=== PATIENT | male | born 1955 | race Caucasian/White ===

== ENCOUNTER 2024-08-26 13:38 | Inpatient (IN) | payer OTHER, MEDICAID, MEDICARE ==
[~2024-08-26] VITALS: Ht 162.6 cm; Wt 71.7 kg
[2024-08-26] MEDS: LORAZEPAM 2MG/ML UD SYRINGE IV NR (14:24)
[2024-08-26] MEDS: SODIUM CHLORIDE 0.9% 1,000 ML IV ONE (14:25)
[2024-08-26 14:34] LABS: BASOPHILS % 0.7 % (0.0-2.0); EOSINOPHILS % 0.7 % (0.0-5.0); HEMATOCRIT. 39.4 % (42.0-52.0); HEMOGLOBIN. 13.1 g/dL (14.0-18.0); LYMPHOCYTES % 14.4 % (20.0-50.0); MEAN PLATELET VOLUME 6.6 fl (7.4-10.4); MONOCYTES % 6.0 % (2.0-8.0); NEUTROPHILS % 78.2 % (40.0-76.0); PLATELET 505 x1000/uL (130-400); RED BLOOD CELL COUNT 4.18 mill/uL (4.7-6.1); RED CELL DISTRIBUTION WIDTH 13.8 % (11.6-14.6)
[2024-08-26 14:46] LABS: CREATININE 0.8 mg/dL (0.6-1.3); UREA NITROGEN BLOOD 12 mg/dL (9-23)
[2024-08-26 14:47] LABS: ETHANOL BLOOD < 10 mg/dL (<10)
[2024-08-26 19:30] VITALS: BP 145/86; PULSE 74; RESP 18; TEMP 36.8
[2024-08-26 20:00] VITALS: BP 145/86; PULSE 74; RESP 18; TEMP 36.7; O2SAT 98
[2024-08-26] MEDS: DEXT 5%/0.45% NACL 1000ML 1,000 ML IV SCH (21:32)
[2024-08-27] VITALS: BP 138/78; PULSE 64; RESP 16; TEMP 34.9; O2SAT 98
[2024-08-27 02:55] LABS: CLARITY URINE CLEAR (CLEAR); COLOR URINE YELLOW (YELLOW); GLUCOSE URINE NEGATIVE (NEGATIVE); KETONES URINE NEGATIVE (NEGATIVE); LEUKOCYTE ESTERASE URINE NEGATIVE (NEGATIVE); NITRITE URINE NEGATIVE (NEGATIVE); OCCULT BLOOD URINE NEGATIVE (NEGATIVE); PH URINE 8.0 (4.5-8.0); PROTEIN URINE NEGATIVE (NEGATIVE); SPECIFIC GRAVITY URINE 1.009 (1.005-1.030); UROBILINOGEN URINE 0.2 E.U./dL (0.2-1.0)
[2024-08-27 03:08] LABS: *AMPHETAMINES SCREEN URINE NEGATIVE (NEGATIVE); *BARBITURATES SCREEN URINE NEGATIVE (NEGATIVE); *BENZODIAZEPINES SCREEN URINE NEGATIVE (NEGATIVE); *COCAINE SCREEN URINE NEGATIVE (NEGATIVE); CANNABINOID URINE SCREEN NEGATIVE (NEGATIVE); ECSTASY MDMA SCREEN URINE NEGATIVE (NEGATIVE); METHADONE URINE SCREEN NEGATIVE (NEGATIVE); OPIATES URINE SCREEN NEGATIVE (NEGATIVE); PHENCYCLIDINE URINE SCREEN NEGATIVE (NEGATIVE)
[2024-08-27 04:00] VITALS: BP 133/67; PULSE 67; RESP 16; TEMP 35.7; O2SAT 95
[2024-08-27 08:00] VITALS: BP 143/91; PULSE 97; RESP 18; TEMP 36.4; O2SAT 92
[2024-08-27] MEDS ORDERED: LORAZEPAM 2MG/ML UD SYRINGE IV PRN (08:00)
[2024-08-27] MEDS ORDERED: CLONIDINE 0.1MG TABLET PO PRN (10:00)
[2024-08-27] MEDS ORDERED: DIPHENHYDRAMINE 50MG/ML VIAL IV PRN (10:00)
[2024-08-27] MEDS ORDERED: ACETAMINOPHEN 325MG TABLET PO PRN ×2 (10:00)
[2024-08-27] MEDS ORDERED: ONDANSETRON HCL 4MG/2ML INJ IV PRN (10:00)
[2024-08-27] MEDS ORDERED: MAGNESIUM/ALUMINUM HYDROXIDE/SIMETHICONE 30ML UDC PO PRN (10:00)
[2024-08-27 12:00] VITALS: BP 122/87; PULSE 84; RESP 18; TEMP 36.6; O2SAT 95
[2024-08-27] MEDS: ENOXAPARIN 40MG/0.4ML SYR SUBCUT SCH (12:02)
[2024-08-27 16:00] VITALS: BP 133/67; PULSE 67; RESP 16; TEMP 36.2; O2SAT 95
[2024-08-27] MEDS: SODIUM CHLORIDE 0.9% 3ML FLUSH IVF SCH (18:00)
[2024-08-27] MEDS: ROPINIROLE HCL 1MG TABLET PO SCH (18:38)
[2024-08-27 20:00] VITALS: BP 121/94; PULSE 107; RESP 18; TEMP 36.3; O2SAT 96
[2024-08-27] MEDS ORDERED: CARBIDOPA/LEVODOPA 25/100MG TABLET CR PO SCH (21:00)
[2024-08-27] MEDS: ATORVASTATIN CALCIUM 20MG TABLET PO SCH (21:50)
[2024-08-27] MEDS: PANTOPRAZOLE 40MG DR TABLET PO SCH (21:50)
[2024-08-27] MEDS: CARBIDOPA/LEVODOPA 25/100MG TABLET CR PO SCH (21:54)
[2024-08-28] VITALS: BP 157/75; PULSE 102; RESP 18; TEMP 36.3; O2SAT 96
[2024-08-28 04:00] VITALS: BP 137/94; PULSE 96; RESP 18; TEMP 36.4; O2SAT 95
[2024-08-28] MEDS: LEVOTHYROXINE SODIUM 50MCG TABLET PO SCH (05:47)
[2024-08-28 07:36] LABS: BASOPHILS % 0.5 % (0.0-2.0); EOSINOPHILS % 1.0 % (0.0-5.0); HEMATOCRIT. 40.5 % (42.0-52.0); HEMOGLOBIN. 13.7 g/dL (14.0-18.0); LYMPHOCYTES % 13.1 % (20.0-50.0); MEAN PLATELET VOLUME 6.7 fl (7.4-10.4); MONOCYTES % 8.1 % (2.0-8.0); NEUTROPHILS % 77.3 % (40.0-76.0); PLATELET 512 x1000/uL (130-400); RED BLOOD CELL COUNT 4.35 mill/uL (4.7-6.1); RED CELL DISTRIBUTION WIDTH 14.0 % (11.6-14.6)
[2024-08-28 07:57] LABS: CREATININE 0.8 mg/dL (0.6-1.3)
[2024-08-28 07:58] LABS: UREA NITROGEN BLOOD 12 mg/dL (9-23)
[2024-08-28 08:00] VITALS: BP 125/80; PULSE 89; RESP 16; TEMP 36.4; O2SAT 96
[2024-08-28 08:00] LABS: PHOSPHORUS 3.8 mg/dL (2.5-4.9)
[2024-08-28] MEDS: FLUOXETINE HCL 20MG CAPSULE PO SCH (09:03)
[2024-08-28 12:00] VITALS: BP 124/76; PULSE 93; RESP 17; TEMP 36.9; O2SAT 95
[2024-08-28 13:32] VITALS: BP 124/76; PULSE 93; TEMP 98.4; O2SAT 95
[2024-08-28 15:23] VITALS: BP 123/74; PULSE 73; TEMP 97.6; O2SAT 97
== END 2024-08-28 16:15 | disposition home or self-care (01) | DRG 72 ==
LOC: ER 13:38 → 5WST 16:07 → EDBEDREQTM 18:15 → EDBEDREQ 18:15 → ENRESERV 18:30
PROVIDERS: ADMIT Internal Medicine; ATTEND Internal Medicine
DX: G93.40 Encephalopathy, unspecified (principal); G20.C Parkinsonism, unspecified; E78.00 Pure hypercholesterolemia, unspecified; E03.9 Hypothyroidism, unspecified; F99 Mental disorder, not otherwise specified; I10 Essential (primary) hypertension; Z79.899 Other long term (current) drug therapy
CPT/HCPCS: 36415; 71045; 80048; 80305; 80320; 81003; 82140; 82550; 82962; 83735; 84100; 84443; 85025; 93005; 97166; 99285; A4606; J1650; J2060; J7030; G0480